=== PATIENT | female | born 1960 | race Caucasian/White ===

== ENCOUNTER → 2019-05-13 | Outpatient (CLI) | payer OTHER ==
[~2019-05-13] MED LIST: Aspirin EC81 MG PO; Crestor40 MG PO; METO25ER PO; Neurontin 100100 MG PO; Prinivil10 MG PO
[2019-05-15 13:07] LABS: HPV 16 Negative (Negative); HPV 18 Negative (Negative); HPV OTHER HR TYPES Negative (Negative)
== END | disposition home or self-care (01) ==
LOC: LAB 17:39 → LAB SHORT 17:39
PROVIDERS: Nurse Practitioner Women's Health
DX: Z12.4 Encounter for screening for malignant neoplasm of cervix (principal)
CPT/HCPCS: 87624; G0123

== ENCOUNTER → 2019-06-27 | Outpatient (CLI) | payer OTHER | END | disposition home or self-care (01) | LOC: PLD 13:39 → LAB SHORT 13:39 | DX: N85.01 Benign endometrial hyperplasia (principal) | CPT/HCPCS: 88305 ==

== ENCOUNTER 2019-07-29 12:15 | Day surgery (SDC) | payer OTHER ==
[~2019-07-29] VITALS: Ht 152.4 cm; Wt 70.0 kg
== END 2019-07-29 14:42 | disposition home or self-care (01) ==
LOC: ORSCSDS 12:15
PROVIDERS: Obstetrics & Gynecology Gynecology
PROC: 0UB98ZX Excision of Uterus, Via Natural or Artificial Opening Endoscopic, Diagnostic (ICD-10-PCS; principal; 2019-07-29 13:30)
DX: C54.1 Malignant neoplasm of endometrium (principal); I10 Essential (primary) hypertension; I25.10 Atherosclerotic heart disease of native coronary artery without angina pectoris; I25.2 Old myocardial infarction; Z79.899 Other long term (current) drug therapy; Z79.82 Long term (current) use of aspirin
CPT/HCPCS: 88305; J0690; J1100; J2250; J2405; J3010; J7120

== ENCOUNTER → 2022-12-04 | Outpatient (CLI) | payer OTHER | END | disposition home or self-care (01) | LOC: LAB 10:30 → LAB SHORT 10:30 | DX: R10.9 Unspecified abdominal pain (principal) | CPT/HCPCS: 87086 ==

== ENCOUNTER 2023-06-27 09:25 | Day surgery (SDC) | payer OTHER ==
[~2023-06-27] VITALS: Ht 149.9 cm; Wt 70.6 kg
[~2023-06-27 09:25] MED LIST changes: +ALEN70 PO; +CYCL10; +EZET10 PO; +TRAZ50 PO; +VALACYCLOVIR1000 M1 PO; +VENL75ER PO
--- NOTE | 2023-06-27 10:03 | NUR ---
06/27/23 1003 Xochitl Cross TAPED BILATERAL EARS X2, RING LEFT HAND, RING RIGHT HAND, TOES 3 RINGS EACH FOOT.
[2023-06-27 11:20] VITALS: BP 100/68
== END 2023-06-27 11:29 | disposition home or self-care (01) ==
LOC: ORSCSDS 09:25
PROVIDERS: Specialist
PROC: 0DBH8ZX Excision of Cecum, Via Natural or Artificial Opening Endoscopic, Diagnostic (ICD-10-PCS; principal; 2023-06-27 10:45)
DX: Z12.11 Encounter for screening for malignant neoplasm of colon (principal); D12.0 Benign neoplasm of cecum; K57.30 Diverticulosis of large intestine without perforation or abscess without bleeding; K64.8 Other hemorrhoids; K44.9 Diaphragmatic hernia without obstruction or gangrene; E78.5 Hyperlipidemia, unspecified; I10 Essential (primary) hypertension; Z79.899 Other long term (current) drug therapy
CPT/HCPCS: 88305; J2704; J7120